=== PATIENT | female | born 1980 | race Two or more races ===

== ENCOUNTER 2017-08-04 22:21 | Emergency (ER) | payer OTHER ==
[~2017-08-04] VITALS: Ht 162.6 cm; Wt 71.2 kg
[2017-08-04 23:24] VITALS: BP 154/99
== END 2017-08-05 01:32 | disposition home or self-care (01) ==
LOC: ER 22:27
DX: S00.33XA Contusion of nose, initial encounter (principal); Z88.0 Allergy status to penicillin; W01.0XXA Fall on same level from slipping, tripping and stumbling without subsequent striking against object, initial encounter; Y93.89 Activity, other specified; Y92.89 Other specified places as the place of occurrence of the external cause; Y99.8 Other external cause status
CPT/HCPCS: A4606; Z7502; Z7610

== ENCOUNTER 2018-08-07 13:40 | Emergency (ER) | payer BC, OTHER ==
[~2018-08-07] VITALS: Ht 162.6 cm; Wt 79.4 kg
[2018-08-07 13:40] VITALS: BP 167/94
--- NOTE | 2018-08-07 14:00 | NUR ---
SEEN AND EXAMINED BY DR. AYALA.
--- NOTE | 2018-08-07 14:18 | NUR ---
Patient discharged to home in stable condition. Written and verbal after care instructions given. Patient verbalizes understanding of instruction.
== END 2018-08-07 14:18 | disposition home or self-care (01) ==
LOC: ER 13:47
DX: R03.0 Elevated blood-pressure reading, without diagnosis of hypertension (principal); R20.2 Paresthesia of skin; Z88.0 Allergy status to penicillin
CPT/HCPCS: 99281; A4606; Z7502

== ENCOUNTER 2019-09-09 18:10 | Emergency (ER) | payer OTHER ==
[~2019-09-09] VITALS: Ht 162.6 cm; Wt 70.3 kg
[2019-09-09] MEDS ORDERED: ACETAMINOPHEN ES 500 MG TABLET ONE (19:02)
--- NOTE | 2019-09-09 19:04 | NUR ---
Patient discharged to [facility] custody in stable condition. Written and verbal after care instructions given. Patient verbalizes understanding of instruction.
[2019-09-09 19:05] VITALS: BP 162/98
== END 2019-09-09 19:07 ==
LOC: ER 18:12
DX: S60.221A Contusion of right hand, initial encounter (principal); S00.83XA Contusion of other part of head, initial encounter; Z02.89 Encounter for other administrative examinations; Z88.0 Allergy status to penicillin; Y08.89XA Assault by other specified means, initial encounter; Y93.89 Activity, other specified; Y92.89 Other specified places as the place of occurrence of the external cause; Y99.8 Other external cause status